=== PATIENT | female | born 1965 | race Native Hawaiian/Other Pacific Islander ===

== ENCOUNTER 2018-02-19 19:03 | Emergency (ER) | payer OTHER ==
[2018-02-19 19:04] VITALS: BMI 24.5
[2018-02-19 19:59] VITALS: RESP 18
--- NOTE | 2018-02-19 20:20 | C.PDOC ---
History Of Present Illness 52 y/o female with a PMHx of anemia presents to the ED complaining of a fever and sore throat since yesterday. Patient took Tylenol this morning without relief. Otherwise she denies any cough, congestion, chest pain, SOB, or dizziness. Time Seen by Provider: 02/19/18 20:08 Chief Complaint (Nursing): Fever History Per: Patient History/Exam Limitations: no limitations Onset/Duration Of Symptoms: Days Current Symptoms Are (Timing): Still Present Past Medical History Reviewed: Historical Data, Nursing Documentation, Vital Signs Vital Signs: Last Vital Signs Temp 100.5 F H 02/19/18 20:43 Pulse 74 02/19/18 20:43 Resp 18 02/19/18 20:43 BP 121/75 02/19/18 20:43 Pulse Ox 100 02/19/18 20:58 - Medical History PMH: Anemia Denies: Kidney Stones, Chronic Kidney Disease Surgical History: Cholecystectomy, Endoscopy - [facility] Procedures DESTRUCTION OF DUODENUM, ENDO (02/23/16) TRANSFUSE NONAUT RED BLOOD CELLS IN PERIPH VEIN, PERC (02/23/16) Family History: States: Unknown Family Hx - Social History Hx Tobacco Use: No Hx Alcohol Use: No Hx Substance Use: No - Immunization History Hx Tetanus Toxoid Vaccination: No Hx Influenza Vaccination: No Hx Pneumococcal Vaccination: No Review Of Systems Except As Marked, All Systems Reviewed And Found Negative. Constitutional: Positive for: Fever ENT: Positive for: Throat Pain. Negative for: Nose Congestion Cardiovascular: Negative for: Chest Pain Respiratory: Negative for: Cough, Shortness of Breath Neurological: Negative for: Dizziness Physical Exam - Physical Exam Appears: Well, Non-toxic, No Acute Distress Skin: Normal Color, Warm, Dry Head: Atraumatic, Normacephalic Eye(s): bilateral: Normal Inspection, EOMI Nose: Normal Oral Mucosa: Moist Throat: Erythema, No Exudate, No Drooling Neck: Normal ROM, Supple Chest: Symmetrical Cardiovascular: Rhythm Regular Respiratory: Normal Breath Sounds, No Accessory Muscle Use, No Rales, No Rhonchi , No Wheezing Extremity: Normal ROM Neurological/Psych: Oriented x3, Normal Speech, Other (no focal deficits) ED Course And Treatment O2 Sat by Pulse Oximetry: 100 (RA) Pulse Ox Interpretation: Normal Progress Note: Patient treated with Motrin PO and initial dose 500 mg Amoxicillin in the ED. Counseled patient regarding diagnosis and treatment plan. Patient will be discharged home with prescriptions for Amoxicillin and Tylenol. Advised patient to follow up with PMD for further evaluation. Return precautions discussed. Disposition Counseled Patient/Family Regarding: Diagnosis, Need For Followup, Rx Given - Disposition Referrals: Clinic,Med Surg [Primary Care Provider] - Disposition: HOME/ ROUTINE Disposition Time: 20:19 Condition: STABLE Additional Instructions: Follow up with your PMD in 1-2 days. Return to ER if symptoms persist or worsen. Prescriptions: Acetaminophen [Tylenol 325mg tab] 650 mg PO Q4 PRN #20 tab PRN Reason: Pain, Mild (1-3) Amoxicillin 875 mg PO BID #14 tablet Instructions: Sore Throat, Adult (DC) Forms: [employer] ([place]ri[place]) - POA Present On Arrival: None - Clinical Impression Clinical Impression: Pharyngitis - PA / MANAGER PERIOPERATIVE / Resident Statement MD/DO has reviewed & agrees with the documentation as recorded. - Scribe Statement The provider has reviewed the documentation as recorded by the Scribe (Ana Hurley) All medical record entries made by the Scribe were at my direction and personally dictated by me. I have reviewed the chart and agree that the record accurately reflects my personal performance of the history, physical exam, medical decision making, and the department course for this patient. I have also personally directed, reviewed, and agree with the discharge instructions and disposition.
[2018-02-19 20:43] VITALS: BP 121/75; PULSE 74; TEMP 100.5
[2018-02-19 20:55] VITALS: O2SAT 100
== END 2018-02-19 21:48 | disposition home or self-care (01) ==
LOC: SUPCPDRO 19:03 → C.ER 19:03
DX: J02.9 Acute pharyngitis, unspecified (principal)

== ENCOUNTER 2018-11-13 08:59 | Emergency (ER) | payer OTHER ==
[2018-11-13 08:59] VITALS: BMI 24.5
[2018-11-13 09:08] VITALS: BP 124/70; PULSE 85; RESP 18; TEMP 99.5; O2SAT 97
--- NOTE | 2018-11-13 09:40 | C.PDOC ---
History Of Present Illness 53 year old female presents to the ED for evaluation of nasal congestion and non-productive cough which began yesterday. Patient also reports having a templerature of 102F at home yesterday, and states she took Advil at 0800 this morning. Patient did not go to see her PMD because "the line is too long there." Patient denies chest pain, shortness of breath, nausea, vomiting, diarrhea, dysuria, abdominal pain, myalgias, arthralgias, or sick contacts. Time Seen by Provider: 11/13/18 09:09 Chief Complaint (Nursing): Cough, Cold, Congestion History Per: Patient History/Exam Limitations: no limitations Onset/Duration Of Symptoms: Hrs Current Symptoms Are (Timing): Still Present Sick Contacts (Context): None Associated Symptoms: Fever, Cough, Nasal Congestion. denies: Sputum, Myalgias, Vomiting, Diarrhea Additional History Per: Patient Past Medical History Reviewed: Historical Data, Nursing Documentation, Vital Signs Vital Signs: Last Vital Signs Temp 99.5 F 11/13/18 09:03 Pulse 85 11/13/18 09:03 Resp 18 11/13/18 09:03 BP 124/70 11/13/18 09:03 Pulse Ox 97 11/13/18 09:03 - Medical History PMH: Anemia Denies: Kidney Stones, Chronic Kidney Disease Surgical History: Cholecystectomy, Endoscopy - [facility] Procedures DESTRUCTION OF DUODENUM, ENDO (02/23/16) TRANSFUSE NONAUT RED BLOOD CELLS IN PERIPH VEIN, PERC (02/23/16) Family History: States: Unknown Family Hx - Social History Hx Tobacco Use: No Hx Alcohol Use: No Hx Substance Use: No - Immunization History Hx Tetanus Toxoid Vaccination: No Hx Influenza Vaccination: No Hx Pneumococcal Vaccination: No Review Of Systems Constitutional: Positive for: Fever ENT: Positive for: Nose Congestion Cardiovascular: Negative for: Chest Pain Respiratory: Positive for: Cough. Negative for: Shortness of Breath, Sputum Gastrointestinal: Negative for: Nausea, Vomiting, Abdominal Pain, Diarrhea Musculoskeletal: Negative for: Other (myalgias, arthralgias ) Physical Exam - Physical Exam Appears: Non-toxic, No Acute Distress Skin: Normal Color, Warm, Dry, No Rash Head: Atraumatic, Normacephalic, No Tenderness (maxillary sinus ) Eye(s): bilateral: Normal Inspection Ear(s): Bilateral: Normal Nose: Other (boggy turbinates ) Oral Mucosa: Moist Throat: Normal, No Erythema, No Exudate Neck: Supple Lymphatic: Adenopathy (cervical ) Chest: Symmetrical, No Deformity, No Tenderness Cardiovascular: Rhythm Regular, No Murmur Respiratory: Normal Breath Sounds, No Rales, No Rhonchi, No Wheezing Extremity: Normal ROM, Capillary Refill (less than 2 seconds ) Neurological/Psych: Oriented x3, Normal Speech, Normal Cognition ED Course And Treatment O2 Sat by Pulse Oximetry: 97 (on RA) Pulse Ox Interpretation: Normal Progress Note: Tylenol PO and Tessalon Perles PO given. On reassessment, patient is resting comfortably, showing no signs of distress and remains afe brile. Patient is stable for discharge. She is given Rx for Motrin, Tessalon Perles, and Sudafed and advised to follow up with PMD within 1-2 days for further evaluation. Disposition Counseled Patient/Family Regarding: Diagnosis, Need For Followup, Rx Given - Disposition Referrals: Hannah Valerio [Medical Doctor] - Disposition: HOME/ ROUTINE Disposition Time: 09:40 Condition: STABLE Additional Instructions: FOLLOW UP WITH YOUR DOCTOR IN 1-2 DAYS USE MEDICATIONS DIRECTED DRINK PLENTY OF FLUIDS RETURN TO ER IF SYMPTOMS WORSEN Prescriptions: Benzonatate [Tessalon Perles] 100 mg PO BID PRN #15 sgl PRN Reason: Cough Ibuprofen [Motrin Tab] 600 mg PO Q6 PRN #30 tab PRN Reason: fever/pain Pseudoephedrine [Sudafed] 60 mg PO Q6 PRN #12 tab PRN Reason: Nasal Congestion Instructions: Viral Upper Respiratory Infection, Adult (DC) Forms: [employer] (Namibian) Print Language: SYRI[place] - Clinical Impression Clinical Impression: Viral disease, Upper respiratory infection - Scribe Statement The provider has reviewed the documentation as recorded by the Scribe (Ping Wren) Provider Attestation: All medical record entries made by the Scribe were at my direction and personally dictated by me. I have reviewed the chart and agree that the record accurately reflects my personal performance of the history, physical exam, medical decision making, and the department course for this patient. I have also personally directed, reviewed, and agree with the discharge instructions and disposition.
== END 2018-11-13 10:00 | disposition home or self-care (01) ==
LOC: C.ER 08:59
DX: J06.9 Acute upper respiratory infection, unspecified (principal)

== ENCOUNTER 2018-12-11 13:53 | Outpatient (CLI) | payer OTHER | END 2018-12-11 13:54 | disposition home or self-care (01) | LOC: C.MAMMO 13:53 | DX: Z12.31 Encounter for screening mammogram for malignant neoplasm of breast (principal) ==

== ENCOUNTER 2019-01-11 10:07 | Outpatient (CLI) | payer OTHER | END 2019-01-11 10:08 | disposition home or self-care (01) | LOC: C.MAMMO 10:07 ==